=== PATIENT | female | born 1980 | race Caucasian/White ===

== ENCOUNTER 2021-03-09 20:26 | Emergency (ER) | payer OTHER ==
[~2021-03-09] VITALS: Ht 172.7 cm; Wt 83.9 kg
== END 2021-03-10 00:22 | disposition home or self-care (01) ==
LOC: ED 20:26
DX: S00.03XA Contusion of scalp, initial encounter (principal); R42 Dizziness and giddiness; W22.8XXA Striking against or struck by other objects, initial encounter; Y93.89 Activity, other specified; Y92.89 Other specified places as the place of occurrence of the external cause; Y99.8 Other external cause status

== ENCOUNTER 2021-04-03 18:14 | Emergency (ER) | payer OTHER ==
[~2021-04-03] VITALS: Ht 170.2 cm; Wt 81.6 kg
[2021-04-03] MEDS ORDERED: SEPTDS PO (20:48)
[2021-04-03] MEDS ORDERED: CEPHALEXIN500 M1 PO (20:48)
== END 2021-04-03 21:01 | disposition home or self-care (01) ==
LOC: ED 18:14
DX: L02.416 Cutaneous abscess of left lower limb (principal)

== ENCOUNTER 2021-08-08 09:01 | Emergency (ER) | payer OTHER ==
[~2021-08-08] VITALS: Ht 170.1 cm; Wt 81.6 kg
[~2021-08-08 09:01] MED LIST: CEPHALEXIN500 M1 PO; SEPTDS PO
[2021-08-08 10:16] LABS: BILIRUBIN Negative (Negative); BLOOD Negative (Negative); CLARITY Clear (Clear); COLOR Yellow (Yellow); GLUCOSE Negative (Negative); KETONE Negative (Negative); LEUKO ESTERASE Negative (Negative); NITRITE Negative (Negative); UROBILINOGEN 0.2 E.U./dl (0.0-1.0)
[2021-08-08 10:35] LABS: BACTERIA TRACE; RBC 0-2 rbc/hpf (0-2); WBC 0-2 wbc/hpf (0-5)
[2021-08-08] MEDS ORDERED: PREDNISONE50 MG PO (11:44)
== END 2021-08-08 15:40 | disposition home or self-care (01) ==
LOC: ED 09:01
PROVIDERS: Emergency Medicine
DX: S39.012A Strain of muscle, fascia and tendon of lower back, initial encounter (principal); X58.XXXA Exposure to other specified factors, initial encounter; Y93.89 Activity, other specified; Y92.89 Other specified places as the place of occurrence of the external cause; Y99.8 Other external cause status

== ENCOUNTER → 2021-08-20 | Outpatient (CLI) | payer OTHER ==
[~2021-08-20] MED LIST changes: +PREDNISONE50 MG PO
== END | disposition home or self-care (01) ==
LOC: COVID19 15:33
PROVIDERS: ATTEND Family Medicine
DX: Z11.52 Encounter for screening for COVID-19 (principal)

== ENCOUNTER 2021-09-14 03:37 | Emergency (ER) | payer OTHER ==
[~2021-09-14] VITALS: Ht 170.1 cm; Wt 81.6 kg
== END 2021-09-14 05:00 | disposition home or self-care (01) ==
LOC: ED 03:37
DX: M54.50 Low back pain, unspecified (principal); W00.0XXA Fall on same level due to ice and snow, initial encounter; Y93.89 Activity, other specified; Y92.89 Other specified places as the place of occurrence of the external cause; Y99.8 Other external cause status

== ENCOUNTER 2021-12-01 18:16 | Emergency (ER) | payer OTHER ==
[~2021-12-01] VITALS: Wt 81.6 kg
[2021-12-01] MEDS ORDERED: IBUPROFEN600 MG PO (19:43)
[2021-12-01] MEDS ORDERED: CEPHALEXIN500 M1 PO (19:43)
== END 2021-12-01 21:05 | disposition home or self-care (01) ==
LOC: ED 18:16
DX: S81.832A Puncture wound without foreign body, left lower leg, initial encounter (principal); W22.8XXA Striking against or struck by other objects, initial encounter; Y93.89 Activity, other specified; Y92.89 Other specified places as the place of occurrence of the external cause; Y99.8 Other external cause status

== ENCOUNTER → 2023-08-25 | Outpatient (CLI) | payer OTHER ==
[~2023-08-25] MED LIST changes: +IBUPROFEN600 MG PO; +ONDANSETRON4 MG SL; +VIBRAMYCIN100 MG PO
== END | disposition home or self-care (01) ==
LOC: US 10:44
PROVIDERS: ATTEND Nurse Practitioner Family
DX: E04.2 Nontoxic multinodular goiter (principal)

== ENCOUNTER → 2025-06-02 | Outpatient (CLI) | payer OTHER | END | disposition home or self-care (01) | LOC: MAMMO 08:49 | PROVIDERS: ATTEND Family Medicine | DX: Z12.31 Encounter for screening mammogram for malignant neoplasm of breast (principal) ==